=== PATIENT | male | born 1990 | race Caucasian/White ===

== ENCOUNTER 2016-05-30 20:50 | Emergency (ER) | payer BC, OTHER ==
[2016-05-30 21:03] VITALS: BP 149/87
[2016-05-30] MEDS ORDERED: Amoxicillin/Clavulanate TAB* 875 MG PO ONE (21:16)
--- NOTE | 2016-05-30 21:27 | UC ---
Throat Pain/Nasal Jovan HPI - HPI Summary HPI Summary: FIVE DAYS OF SINUS CONGESTION, COUGH, FACIAL PRESSURE. EAR FULLNESS.NO FEVER - History of Current Complaint Chief Complaint: KCCongestion Stated Complaint: COUGH, AND CHEST CONGESTION Time Seen by Provider: 05/30/16 20:51 Hx Obtained From: Patient, Family/Cushion Sewer Onset/Duration: Gradual Onset, Lasting Days, Still Present Severity: Moderate Cough: Productive Associated Signs & Symptoms: Positive: Hoarseness, Sinus Discomfort, Nasal Discharge - Epiglottits Risk Factors Epiglottis Risk Factors: Negative - Allergies/Home Medications Allergies/Adverse Reactions: Allergies Allergy/AdvReac Type Severity Reaction Status Date / Time No Known Allergies Allergy Verified 05/09/13 20:20 Home Medications: Home Medications Menthol (Mouth-Throat) [Cough Drops] 05/30/16 [History] [id number] [DAY TIME/NITE TIME COLD (Liquid)] 05/30/16 [ History] PMH/Surg Hx/FS Hx/Imm Hx Previously Healthy: Yes Endocrine History Of: Denies: Diabetes, Thyroid Disease Cardiovascular History Of: Denies: Cardiac Disorders, Hypertension, Congestive Heart Failure Respiratory History Of: Denies: COPD, Asthma GI/ History Of: Denies: Ulcer, Renal Disease - Surgical History Surgical History: None Surgery Procedure, Year, and Place: appendix out 2013 - Family History Known Family History: Negative: Respiratory Disease - Social History Occupation: Employed Full-time Lives: With Family Alcohol Use: Occasionally Substance Use Type: None Smoking Status (MU): Never Smoked Tobacco Type: Smokeless Tobacco - Immunization History Most Recent Influenza Vaccination: never Most Recent Tetanus Shot: 2008 Most Recent Pneumonia Vaccination: none Review of Systems Constitutional: Negative Skin: Negative Eyes: Negative ENT: Nasal Discharge Respiratory: Cough Cardiovascular: Negative Gastrointestinal: Negative Genitourinary: Negative Motor: Negative Neurovascular: Negative Musculoskeletal: Negative Neurological: Negative Psychological: Negative All Other Systems Reviewed And Are Negative: Yes Physical Exam Triage Information Reviewed: Yes Appearance: Well-Appearing, No Pain Distress, Well-Nourished Vital Signs: Initial Vital Signs Temp 98.3 F 05/30/16 20:54 Pulse 94 05/30/16 20:54 Resp 18 05/30/16 20:54 BP 149/87 05/30/16 20:54 Pulse Ox 98 05/30/16 20:54 Vital Signs Reviewed: Yes Eye Exam: Normal ENT: Positive: Hearing grossly normal, Pharynx normal, TM bulging, TM dull Dental Exam: Normal Neck exam: Normal Neck: Positive: Supple, Nontender, No Lymphadenopathy. Negative: Nuchal Rigidity, Tenderness @ Respiratory Exam: Other - COUGH Respiratory: Positive: Chest non-tender, Lungs clear, Normal breath sounds, No respiratory distress, No accessory muscle use Cardiovascular Exam: Normal Cardiovascular: Positive: RRR, No Murmur Abdominal Exam: Normal Musculoskeletal Exam: Normal Musculoskeletal: Positive: Strength Intact, ROM Intact Neurological Exam: Normal Psychological Exam: Normal Psychological: Positive: Normal Response To Family Skin Exam: Normal Throat Pain/Nasal Course/Dx - Differential Dx/Diagnosis Differential Diagnosis/HQI/PQRI: Otitis Media, Sinusitis, URI Provider Diagnoses: SINUSITIS; ACUTE BRONCHITIS Discharge - Discharge Plan Condition: Stable Disposition: HOME Prescriptions: Amoxicillin/Clavulanate TAB* [Augmentin TAB 875*] 875 mg PO BID #20 tab Benzonatate CAP* [Tessalon 100 MG CAP*] 100 mg PO TID PRN #15 cap PRN Reason: Cough Patient Education Materials: Sinusitis (ED), Acute Bronchitis (ED) Forms: *Work Release Referrals: Omar Castellon MD [Primary Care Provider] -
== END 2016-05-30 21:37 | disposition home or self-care (01) ==
LOC: UCEAST 20:50
DX: J32.9 Chronic sinusitis, unspecified (principal); J20.9 Acute bronchitis, unspecified
CPT/HCPCS: 99212; A9270-GY; G0463

== ENCOUNTER 2018-03-01 15:14 | Emergency (ER) | payer BC ==
[2018-03-01 15:31] VITALS: BP 133/73
--- NOTE | 2018-03-01 16:20 | UC ---
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 no CP/SOB, racing heart. no known Fhx of DVTs -no h/o prolonged rest or traveling recently. no ca. - History of Current Complaint Chief Complaint: UCLowerExtremity Time Seen by Provider: 03/01/18 16:19 Stated Complaint: SWOLLEN/RED LEFT LEG Pain Intensity: 4 - Allergy/Home Medications Allergies/Adverse Reactions: Allergies Allergy/AdvReac Type Severity Reaction Status Date / Time No Known Allergies Allergy Verified 03/01/18 15:31 Home Medications: Home Medications Ibuprofen TAB* [Motrin TAB* 400 MG] 400 mg PO Q6H PRN 03/01/18 [History Confirmed 03/01/18] PMH/Surg Hx/FS Hx/Imm Hx Previously Healthy: Yes - Surgical History Surgical History: None Surgery Procedure, Year, and Place: appendix out 2013 - Family History Known Family History: Positive: Other - no known FHx DVTs Negative: Respiratory Disease - Social History Alcohol Use: Occasionally Substance Use Type: None Smoking Status (MU): Never Smoked Tobacco Type: Smokeless Tobacco - Immunization History Most Recent Influenza Vaccination: never Most Recent Tetanus Shot: 2008 Most Recent Pneumonia Vaccination: none Review of Systems All Other Systems Reviewed And Are Negative: Yes Constitutional: Positive: Negative Skin: Positive: Rash Eyes: Positive: Negative ENT: Positive: Negative Respiratory: Positive: Negative Cardiovascular: Positive: Negative Gastrointestinal: Positive: Negative Genitourinary: Positive: Negative Motor: Positive: Negative Neurovascular: Positive: Negative Musculoskeletal: Positive: Negative Neurological: Positive: Negative Psychological: Positive: Negative Is Patient Immunocompromised?: No Physical Exam Triage Information Reviewed: Yes Appearance: Well-Appearing, No Pain Distress, Well-Nourished Vital Signs: Initial Vital Signs Temp 99.1 F 03/01/18 15:27 Pulse 92 03/01/18 15:27 Resp 16 03/01/18 15:27 BP 133/73 03/01/18 15:27 Pulse Ox 100 03/01/18 15:27 Vital Signs Reviewed: Yes ENT Exam: Normal ENT: Positive: Pharynx normal Neck exam: Normal Neck: Positive: Supple, Nontender, No Lymphadenopathy Respiratory Exam: Normal Respiratory: Positive: Lungs clear, Normal breath sounds, No respiratory distress, No accessory muscle use. Negative: Crackles, Rhonchi, Stridor, Wheezing Cardiovascular Exam: Normal Cardiovascular: Positive: RRR, No Murmur, Pulses Normal Abdomen Description: Positive: Nontender, Soft Neurological Exam: Normal Psychological Exam: Normal Skin: Positive: Other - left lower 1/3 of posterior LE with mild erythema, swelling and tender. mildly warm to touch. no dc or streaks. Course/Dx - Course Course Of Treatment: left LE with some erythema and swelling. unable to r/o DVT at [facility] facility as we do not ahev US. explained very carefully to pt that it is recommended he go to ER today to have US done and a DVT can be fatal. he verbalizes nderstanding and assures me that he will go directtly there. -may be mild cellulitis but unable to r/o DVT - Differential Diagnoses - Skin Complaint Differential Diagnoses: Cellulitis, Diabetes, Eczema, Other - DVT - Diagnoses Provider Diagnosis: Left leg swelling Discharge - Sign-Out/Discharge Documenting (check all that apply): Patient Departure All imaging exams completed and their final reports reviewed: No Studies - Discharge Plan Condition: Stable Disposition: HOME-RECOMMEND TO ED Referrals: No Primary Care Phys,NOPCP [Primary Care Provider] - Additional Instructions: We discussed the importance of having a primary care physician. You declined a list of PCPs as you stated you would follow up with the one in [place] that you have seen. It is very important that you go directly to the ER for evaluation for a blood clot as unfortunately we do not have the appropriate testing needed here. - Billing Disposition and Condition Condition: STABLE Disposition: Home-Recommend to ED
== END 2018-03-01 16:42 | disposition home health service (06) ==
LOC: UCCORT 15:14
DX: M79.89 Other specified soft tissue disorders (principal); Z82.49 Family history of ischemic heart disease and other diseases of the circulatory system
CPT/HCPCS: 99212; G0463